=== PATIENT | female | born 1930 | race Caucasian/White ===

== ENCOUNTER 2016-08-08 13:17 | Emergency (ER) | payer OTHER ==
--- NOTE | 2016-08-08 15:12 | DIAGNOSTIC IMAGING REPORT ---
PROCEDURE: XR CHEST 1 VIEW INDICATION: DIZZY TECHNIQUE: Single view. COMPARISON: None. FINDINGS: The cardiomediastinal contour is normal. No central venous congestion. The pulmonary arteries are prominent. The lungs hyperinflated but clear without focal consolidation, pleural effusion or pneumothorax. The osseous structures are intact. IMPRESSION: 1. No acute disease. 2. Findings of mild COPD/emphysema.
--- NOTE | 2016-08-08 16:11 | ED ORDER SUMMARY ---
..... 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) (13:30 08/08/2016 Janet per protocol) (13:56 Janet) Cardiac Panel Stat (13:30 08/08/2016 NANALISEonmarlon per protocol) (Ack 13:35 Rick) (13:56 Janet) UA-Culture if indicated Urgent (13:30 08/08/2016 Janet per protocol) (Ack 13:35 Rick) (13:56 Janet) EKG - ER Stat (13:30 08/08/2016 Janet per protocol) (Ack 13:35 Rick) (14:16 Carina) Chest 1V Urgent (14:04 08/08/2016 Kendra SCHWARTZ) (Ack 14:12 Rick) (16:01 [facility]) PT with INR Urgent (14:05 08/08/2016 Kendra SCHWARTZ) (14:06 Janet) PTT Urgent (14:05 08/08/2016 Kendra SCHWARTZ) (14:06 Janet) Pulse oximeter (14:05 08/08/2016 Kendra SCHWARTZ) (14:07 Janet) Vitals - Orthostatic (14:05 08/08/2016 Kendra SCHWARTZ) (Ack 14:16 Carina) (14:25 Carina) MEDICATION ORDERS: IV FLUIDS: IV Saline Lock (13:30 08/08/2016 Janet per protocol) (13:57 Janet) IV NS : initial bolus 500 mL (1000 mL/hr), then 125 mL/hr for 4h (NOW); Urgent (15:46 08/08/2016 Kendra SCHWARTZ) (15:56 Janet) ORDER SHEET NOTES: [Electronically signed by Gill Patel (16:58 08/08/2016)] [Electronically signed by Perico Thorpe MD (08:52 08/10/2016)] [Electronically locked/signed by Gill Patel (16:58 08/08/2016)]
--- NOTE | 2016-08-08 16:11 | ED ORDER SUMMARY ---
..... 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) (13:30 08/08/2016 Janet per protocol) (13:56 Janet) Cardiac Panel Stat (13:30 08/08/2016 ANNALISEonmarlon per protocol) (Ack 13:35 Rick) (13:56 Janet) UA-Culture if indicated Urgent (13:30 08/08/2016 Janet per protocol) (Ack 13:35 Rick) (13:56 Janet) EKG - ER Stat (13:30 08/08/2016 Janet per protocol) (Ack 13:35 Rick) (14:16 Carina) Chest 1V Urgent (14:04 08/08/2016 Kendra SCHWARTZ) (Ack 14:12 Rick) (16:01 [facility]) PT with INR Urgent (14:05 08/08/2016 Kendra SCHWARTZ) (14:06 Janet) PTT Urgent (14:05 08/08/2016 Kendra SCHWARTZ) (14:06 Janet) Pulse oximeter (14:05 08/08/2016 Kendra SCHWARTZ) (14:07 Janet) Vitals - Orthostatic (14:05 08/08/2016 Kendra SCHWARTZ) (Ack 14:16 Carina) (14:25 Carina) MEDICATION ORDERS: IV FLUIDS: IV Saline Lock (13:30 08/08/2016 Janet per protocol) (13:57 Janet) IV NS : initial bolus 500 mL (1000 mL/hr), then 125 mL/hr for 4h (NOW); Urgent (15:46 08/08/2016 Kendra SCHWARTZ) (15:56 Janet) ORDER SHEET NOTES: [Electronically signed by Gill Patel (16:58 08/08/2016)] [Electronically signed by Perico Thorpe MD (08:52 08/10/2016)] [Electronically locked/signed by Gill Patel (16:58 08/08/2016)]
--- NOTE | 2016-08-08 16:11 | ED CLINICAL REPORT ---
Clinical Report - Physicians/Mid Levels [facility] [address] [place] [address] 08/08/2016 13:20 Patient: JULIO CESAR FERNANDO Time Seen: 14:02. Arrived- By private vehicle. Historian- patient. HISTORY OF PRESENT ILLNESS Chief Complaint: DIZZINESS. This started today and is now gone. It was abrupt in onset and has been intermittent and waxing/waning. Described as feeling off balance and light-headed. No nausea, vomiting, hearing loss, tinnitus or ear pain. Similar symptoms previously: Several times. Diagnosis: (UTI). REVIEW OF SYSTEMS No chills, fever, sweats, calf pain or chest pain. No cough, difficulty breathing, pedal edema, palpitations or abdominal pain. No constipation, diarrhea, nausea or vomiting. She has had incontinence of urine (chronically). All systems otherwise negative, except as recorded above. PAST HISTORY Problems: Tremor. Macular Degeneration. Medications: Premarin Oral. Allergies: Oxycodone. Sulfa Antibiotics. SOCIAL HISTORY Never smoker. Resides in an assisted living center. FAMILY HISTORY Denies family medical history. ADDITIONAL NOTES The nursing notes have been reviewed. PHYSICAL EXAM Vital Signs: 08/08/2016 13:23 BP: 175/57. HR: 80. RR: 16. O2 saturation: 96%. Temp: 97.6 F. Have been reviewed. Eyes: Pupils equal, round and reactive to light. No nystagmus. ENT: Dry mucous membranes present. Pharynx normal. Neck: Normal inspection. CVS: Normal heart rate and rhythm. Heart sounds normal. Respiratory: No respiratory distress. Breath sounds normal. Abdomen: Soft and nontender. No organomegaly. Back: Normal inspection. No CVA tenderness. Skin: Skin warm and dry. Normal skin color. Normal skin turgor. Extremities: Extremities exhibit normal ROM. No lower extremity edema. Neuro: Alert. Mood/affect normal. No cerebellar findings. No motor deficit. No sensory deficit. LABS, X-RAYS, AND EKG EKG: Normal EKG. Rate: 70. Prior EKG unavailable. The study has been independently viewed by me. Chest X-ray: (IMPRESSION: 1. No acute disease. 2. Findings of mild COPD/emphysema.). The X-rays were interpreted by the radiologist and contemporaneously by me. Laboratory Tests: UA-Culture if indicated: (SUKI: 08/08/2016 13:45) ( [facility] 08/08/2016 14:26) Final results Test Result Flag Units (Reference) URINE COLOR YELLOW URINE APPEARANCE SL CLOUDY URINE GLUCOSE NEGATIVE (NEGATIVE) URINE BILIRUBIN NEGATIVE (NEGATIVE) URINE KETONE NEGATIVE (NEGATIVE) URINE SPECIFIC GRAVITY 1.010 (1.010-1.030) URINE PH 6.5 (5.0-8.0) URINE PROTEIN NEGATIVE (NEGATIVE) URINE UROBILINOGEN 0.2 EU/dL (0.2-1.0) URINE NITRITE POSITIVE (NEGATIVE) URINE BLOOD NEGATIVE (NEGATIVE) URINE LEUK ESTERASE POSITIVE (NEGATIVE) URINE RBC 1-3 rbc/hpf (0-1) URINE WBC 15-25 wbc/hpf (0-1) URINE EPITHELIAL CELLS 5-10 EPI/hpf (0-5) URINE BACTERIA MODERATE (2+ TO 3+) (NONE SEEN) URINE COMMENT CULTURE INDICATED URINE CULTURES ARE SET-UP BASED ON THE FOLLOWING CRITERIA:POSITIVE NITRITEPOSITIVE LEUKOCYTE ESTERASEGREATER THAN 10 WHITE BLOOD CELLSMODERATE (2+) OR GREATER BACTERIA CBC w Diff: (SUKI: 08/08/2016 13:45) ( [facility] 08/08/2016 14:07) Final results Test Result Flag Units (Reference) WHITE BLOOD COUNT 6.4 K/uL (4.5-11.5) RED BLOOD COUNT 4.54 M/uL (4.00-5.20) HEMOGLOBIN 12.6 gm/dL (12.0-16.0) HEMATOCRIT 38.8 % (36.0-46.0) MEAN CELL VOLUME 85 fL (80-100) MEAN CORPUSCULAR HGB 28 pg (26-34) MEAN CORPUSCULAR HGB CONC 33 g/dL (31-37) RED CELL DISTRIBUTION WIDTH 14.9 H % (11.6-14.8) PLATELET COUNT 273 K/uL (150-400) NEUTROPHIL % 74.7 % (50-75) LYMPH % 15.0 L % (25-40) MONO % 9.6 % (3-14) EOSINOPHIL % 0.4 % (0-4) BASOPHIL % 0.3 % (0-2) PT with INR: (SUKI: 08/08/2016 13:45) ( [facility] 08/08/2016 15:03) Final results Test Result Flag Units (Reference) INR 1.2 (0.8-1.2) Low Intensity Therapy: INR 1.5-2.0 PT range 18.5-23.1Mod.Intensity Therapy: INR 2.0-3.0 PT range 23.1-31.5High Intensity Therapy: INR 2.5-3.5 PT range 27.4-35.5High Intensity Therapy 2: INR 3.0-4.0 PT range 31.5-39.3 APTT 33 SECONDS (24-34) CHEM 13 PANEL: (SUKI: 08/08/2016 13:45) ( [facility] 08/08/2016 14:59) Final results Test Result Flag Units (Reference) GLUCOSE 106 mg/dL (70-110) BUN 27 H mg/dL (7-18) CREATININE 1.0 mg/dL (0.6-1.3) Estimated GFR 56.14 mL/min Estimated GFR- >60 mL/min Note: Persistent reduction over 3 months in eGFR<60 mL/min/1.73 m2 defines CKD. Patients with eGFR values>=60 mL/min/1.73 m2 may also have CKD if evidence ofpersistent proteinuria. Additional information may be foundat www.kidney.org. SODIUM 141 mmol/L (136-145) POTASSIUM 4.2 mmol/L (3.5-5.1) CHLORIDE 106 mmol/L (98-107) CARBON DIOXIDE 23 mmol/L (21-32) CALCIUM 9.5 mg/dL (8.5-10.1) TOTAL PROTEIN 7.3 g/dL (6.4-8.2) ALBUMIN 3.6 g/dL (3.3-5.0) BILIRUBIN, TOTAL 0.3 mg/dL (0.0-1.0) ALKALINE PHOSPHATASE 93 U/L (46-116) AST (SGOT) 24 U/L (15-37) ALT (SGPT) 22 U/L (12-78) MAGNESIUM 2.1 mg/dL (1.8-2.4) CPK 109 U/L (24-260) TROPONIN I <0.05 ng/mL (0.00-1.5) TROPONIN REFERENCE RANGE:<0.1 NEGATIVE0.1-1.5 INDETERMINANT>1.5 POSITIVE . PROGRESS AND PROCEDURES Course of Care: Patient is stable. Patient/family counseled. Old medical records ordered. Old records unavailable. Disposition: Discharged. Condition: stable. CLINICAL IMPRESSION Acute dizziness. Mild volume depletion. Urinary tract infection with cystitis. INSTRUCTIONS Drink plenty of fluids. Warnings: Further evaluation is necessary. GENERAL WARNINGS: Return or contact your physician immediately if your condition worsens or changes unexpectedly, if not improving as expected, or if other problems arise. Your Current Medications: CONTINUE TAKING THE FOLLOWING MEDICATIONS: Premarin Oral. Prescription Medications: Macrobid 100 mg: Take 1 capsule orally every 12 hours for 7 days. No refills. Substitution is permissible. Follow-up: Follow up with your doctor in seven days. Call for the next available appointment. Understanding of the discharge instructions verbalized by patient and family. (Electronically signed by Perico Thorpe MD 08/10/2016 8:52)
--- NOTE | 2016-08-08 16:11 | ED CLINICAL REPORT ---
Clinical Report - Physicians/Mid Levels [facility] [address] [place] [address] 08/08/2016 13:20 Patient: JULIO CESAR FERNANDO Time Seen: 14:02. Arrived- By private vehicle. Historian- patient. HISTORY OF PRESENT ILLNESS Chief Complaint: DIZZINESS. This started today and is now gone. It was abrupt in onset and has been intermittent and waxing/waning. Described as feeling off balance and light-headed. No nausea, vomiting, hearing loss, tinnitus or ear pain. Similar symptoms previously: Several times. Diagnosis: (UTI). REVIEW OF SYSTEMS No chills, fever, sweats, calf pain or chest pain. No cough, difficulty breathing, pedal edema, palpitations or abdominal pain. No constipation, diarrhea, nausea or vomiting. She has had incontinence of urine (chronically). All systems otherwise negative, except as recorded above. PAST HISTORY Problems: Tremor. Macular Degeneration. Medications: Premarin Oral. Allergies: Oxycodone. Sulfa Antibiotics. SOCIAL HISTORY Never smoker. Resides in an assisted living center. FAMILY HISTORY Denies family medical history. ADDITIONAL NOTES The nursing notes have been reviewed. PHYSICAL EXAM Vital Signs: 08/08/2016 13:23 BP: 175/57. HR: 80. RR: 16. O2 saturation: 96%. Temp: 97.6 F. Have been reviewed. Eyes: Pupils equal, round and reactive to light. No nystagmus. ENT: Dry mucous membranes present. Pharynx normal. Neck: Normal inspection. CVS: Normal heart rate and rhythm. Heart sounds normal. Respiratory: No respiratory distress. Breath sounds normal. Abdomen: Soft and nontender. No organomegaly. Back: Normal inspection. No CVA tenderness. Skin: Skin warm and dry. Normal skin color. Normal skin turgor. Extremities: Extremities exhibit normal ROM. No lower extremity edema. Neuro: Alert. Mood/affect normal. No cerebellar findings. No motor deficit. No sensory deficit. LABS, X-RAYS, AND EKG EKG: Normal EKG. Rate: 70. Prior EKG unavailable. The study has been independently viewed by me. Chest X-ray: (IMPRESSION: 1. No acute disease. 2. Findings of mild COPD/emphysema.). The X-rays were interpreted by the radiologist and contemporaneously by me. Laboratory Tests: UA-Culture if indicated: (SUKI: 08/08/2016 13:45) ( [facility] 08/08/2016 14:26) Final results Test Result Flag Units (Reference) URINE COLOR YELLOW URINE APPEARANCE SL CLOUDY URINE GLUCOSE NEGATIVE (NEGATIVE) URINE BILIRUBIN NEGATIVE (NEGATIVE) URINE KETONE NEGATIVE (NEGATIVE) URINE SPECIFIC GRAVITY 1.010 (1.010-1.030) URINE PH 6.5 (5.0-8.0) URINE PROTEIN NEGATIVE (NEGATIVE) URINE UROBILINOGEN 0.2 EU/dL (0.2-1.0) URINE NITRITE POSITIVE (NEGATIVE) URINE BLOOD NEGATIVE (NEGATIVE) URINE LEUK ESTERASE POSITIVE (NEGATIVE) URINE RBC 1-3 rbc/hpf (0-1) URINE WBC 15-25 wbc/hpf (0-1) URINE EPITHELIAL CELLS 5-10 EPI/hpf (0-5) URINE BACTERIA MODERATE (2+ TO 3+) (NONE SEEN) URINE COMMENT CULTURE INDICATED URINE CULTURES ARE SET-UP BASED ON THE FOLLOWING CRITERIA:POSITIVE NITRITEPOSITIVE LEUKOCYTE ESTERASEGREATER THAN 10 WHITE BLOOD CELLSMODERATE (2+) OR GREATER BACTERIA CBC w Diff: (SUKI: 08/08/2016 13:45) ( [facility] 14:07) Final results Test Result Flag Units (Reference) WHITE BLOOD COUNT 6.4 K/uL (4.5-11.5) RED BLOOD COUNT 4.54 M/uL (4.00-5.20) HEMOGLOBIN 12.6 gm/dL (12.0-16.0) HEMATOCRIT 38.8 % (36.0-46.0) MEAN CELL VOLUME 85 fL (80-100) MEAN CORPUSCULAR HGB 28 pg (26-34) MEAN CORPUSCULAR HGB CONC 33 g/dL (31-37) RED CELL DISTRIBUTION WIDTH 14.9 H % (11.6-14.8) PLATELET COUNT 273 K/uL (150-400) NEUTROPHIL % 74.7 % (50-75) LYMPH % 15.0 L % (25-40) MONO % 9.6 % (3-14) EOSINOPHIL % 0.4 % (0-4) BASOPHIL % 0.3 % (0-2) PT with INR: (SUKI: 08/08/2016 13:45) ( [facility] 08/08/2016 15:03) Final results Test Result Flag Units (Reference) INR 1.2 (0.8-1.2) Low Intensity Therapy: INR 1.5-2.0 PT range 18.5-23.1Mod.Intensity Therapy: INR 2.0-3.0 PT range 23.1-31.5High Intensity Therapy: INR 2.5-3.5 PT range 27.4-35.5High Intensity Therapy 2: INR 3.0-4.0 PT range 31.5-39.3 APTT 33 SECONDS (24-34) CHEM 13 PANEL: (SUKI: 08/08/2016 13:45) ( [facility] 14:59) Final results Test Result Flag Units (Reference) GLUCOSE 106 mg/dL (70-110) BUN 27 H mg/dL (7-18) CREATININE 1.0 mg/dL (0.6-1.3) Estimated GFR 56.14 mL/min Estimated GFR- >60 mL/min Note: Persistent reduction over 3 months in eGFR<60 mL/min/1.73 m2 defines CKD. Patients with eGFR values>=60 mL/min/1.73 m2 may also have CKD if evidence ofpersistent proteinuria. Additional information may be foundat www.kidney.org. SODIUM 141 mmol/L (136-145) POTASSIUM 4.2 mmol/L (3.5-5.1) CHLORIDE 106 mmol/L (98-107) CARBON DIOXIDE 23 mmol/L (21-32) CALCIUM 9.5 mg/dL (8.5-10.1) TOTAL PROTEIN 7.3 g/dL (6.4-8.2) ALBUMIN 3.6 g/dL (3.3-5.0) BILIRUBIN, TOTAL 0.3 mg/dL (0.0-1.0) ALKALINE PHOSPHATASE 93 U/L (46-116) AST (SGOT) 24 U/L (15-37) ALT (SGPT) 22 U/L (12-78) MAGNESIUM 2.1 mg/dL (1.8-2.4) CPK 109 U/L (24-260) TROPONIN I <0.05 ng/mL (0.00-1.5) TROPONIN REFERENCE RANGE:<0.1 NEGATIVE0.1-1.5 INDETERMINANT>1.5 POSITIVE . PROGRESS AND PROCEDURES Course of Care: Patient is stable. Patient/family counseled. Old medical records ordered. Old records unavailable. Disposition: Discharged. Condition: stable. CLINICAL IMPRESSION Acute dizziness. Mild volume depletion. Urinary tract infection with cystitis. INSTRUCTIONS Drink plenty of fluids. Warnings: Further evaluation is necessary. GENERAL WARNINGS: Return or contact your physician immediately if your condition worsens or changes unexpectedly, if not improving as expected, or if other problems arise. Your Current Medications: CONTINUE TAKING THE FOLLOWING MEDICATIONS: Premarin Oral. Prescription Medications: Macrobid 100 mg: Take 1 capsule orally every 12 hours for 7 days. No refills. Substitution is permissible. Follow-up: Follow up with your doctor in seven days. Call for the next available appointment. Understanding of the discharge instructions verbalized by patient and family. (Electronically signed by Perico Thorpe MD 08/10/2016 8:52)
--- NOTE | 2016-08-08 16:11 | ED NURSING NOTES ---
Clinical Report - Nurses [facility] [address] [place] [address] 08/08/2016 13:20 Patient: JULIO CESAR FERNANDO TRIAGE Triage time 0115. Acuity: LEVEL 3. Chief Complaint: DIZZINESS and LIGHT HEADED. Alert. No acute distress. --13:28 Gill Patel 13:23 08/08/16. BP: 175/57. HR: 80. RR: 16. O2 saturation: 96%. Temp: 97.6 F. Pain level now 0/10. --13:28 Gill Patel. Weight: 71.6 kg. Height/Length: 70 inches. BMI: 22.6. --13:23 Gill Patel. Medications Premarin Oral. --13:24 Gill Patel. Allergies Sulfa Antibiotics. --13:24 Gill Patel Oxycodone. --13:25 Gill Patel. History Arrived by EMS. Historian: EMS and patient. This started just prior to arrival. Started while participating in light activity. Symptoms still present. ( Pt got up to walk downstairs and felt light headed and dizzy, facily called EMS). ( Pt denies any sxs other than dizzy/lightheaded). SOCIAL HX: Never smoker. --13:28 Gill Patel. PROBLEMS: Tremor. Macular Degeneration. --13:25 Gill Patel. Interventions To treatment room. --13:28 Gill Patel. PHYSICAL ASSESSMENT To room via stretcher. Patient gowned. GENERAL / NEURO / PSYCH: Oriented X 4. Appears in no acute distress. Alert. Speech within normal limits. HEENT: No facial asymmetry noted. Pupils equal, round and reactive to light. RESPIRATORY: Breath sounds within normal limits. Respirations not labored. CVS: Normal sinus rhythm noted. Capillary refill less than 2 seconds. GI / : Abdomen soft and nontender. SKIN: Skin is warm and dry. --13:28 Gill Patel. NURSING PROGRESS NOTES Reassurance given. Call light placed in reach. Side rails up x 2. Bed placed in lowest position. Brakes of bed on. Patient ready for evaluation- chart flagged. --13:28 Gill Patel 13:57 08/08/2016 Site #1 started via IV in the right forearm with an 22g angiocath, with aseptic technique and good blood return; one attempt. Blood drawn: rainbow set. Labeled in the presence of the patient and sent to the lab. Saline lock flushed with 10 mL saline. --13:57 Gill Patel EKG time: (13:43). EKG was performed by a tech and shown to the ED physician. --14:13 Sheila Gerber 14:16 08/08/16. BP: 150/64 (regular adult cuff) taken on the left arm, via an automated monitor, while lying. HR: 72 (regular). --14:18 Sheila Gerber 14:18 08/08/16. BP: 159/58 (regular adult cuff) taken on the left arm, via an automated monitor, while sitting. HR: 78 (regular). --14:20 Sheila Gerber 14:22 08/08/16. BP: 172/77 (regular adult cuff) taken on the left arm, via an automated monitor, while standing. HR: 107. Additional comments: Patient reports to be "not to steady" while standing and continues to report "it's an awful feeling". --14:24 Sheila Gerber 15:15 08/08/16. BP: 164/65. HR: 76. RR: 18. O2 saturation: 97%. --15:16 Gill Patel Overall patient status is the same- she states feels the same. Patient and family informed about reason for wait and about plan of care. Patient waiting for evaluation. --15:16 Gill Patel 15:56 08/08/2016 Started bag #1 500 mL IV Fluids IV NS (Saline); bolus of 500 mL over 1 hour(s) via site #1 --15:56 Gill Patel. DISPOSITION / DISCHARGE 16:56 08/08/2016 IV Fluids IV NS Discontinued: bag #1 STOPPED upon discharge. Total amount infused: 500 mL. --16:56 Gill Patel 16:57 08/08/2016 Site #1 removed upon discharge. Catheter intact. Pressure dressing applied. --16:57 Gill Patel Condition at departure: improved and stable. No learning barriers present. Discharge instructions provided and reviewed with the patient and family. Reviewed medication(s). Patient and family verbalized understanding. Written instructions provided in Grenadian. The patient was discharged by the physician. She was discharged home and accompanied by family. She left the Emergency Department ambulatory and via private vehicle. Family member driving. --16:57 Gill Patel 16:56 08/08/16. BP: 172/67. HR: 80. RR: 18. O2 saturation: 97%. --16:57 Gill Patel Departure time: 1655. --16:58 Gill Patel. Locked/Released at 08/08/2016 16:58 by Gill Patel,
--- NOTE | 2016-08-10 08:52 | ED MAR SUMMARY ---
..... Medication Administration Record [facility] [address] [place] [address] Patient: JULIO CESAR FERNANDO Visit ID: [id number] 85y, F Weight: 71.6 kg Height/Length: 70 in BMI: 22.6 ALLERGIES: Oxycodone, Sulfa Antibiotics Start 15:56 08/08/2016 Gill Patel,, Stop 16:56 08/08/2016 Gill Patel, Medication Administered: IV NS (SALINE), Dose: IV Fluids, Bolus: 500 mL over 1 hour(s), Dispensed: 500 mL bag, Site: #1 right forearm. Medication Ordered: IV NS : initial bolus 500 mL (1000 mL/hr), then 125 mL/hr for 4h (NOW); Urgent.
--- NOTE | 2016-08-10 08:52 | ED MED RECONCILIATION SUMMARY ---
Patient: JULIO CESAR FERNANDO Medication Reconciliation Report [facility] VisitID: [id number] [address] [place] [address] 85y, F Registration Date/Time: 08/08/2016 Weight: 71.6 kg Height/Length: 70 in. BMI: 22.6 ALLERGIES: Oxycodone, Sulfa Antibiotics The patient's Home Medications are listed below: CONTINUE TAKING THE FOLLOWING MEDICATIONS: Premarin Oral The source(s) of the original Home Medication information: Not obtained. The following Medications were given to the patient in the Emergency Department: IV NS IV Fluids bolus 500 mL over 1 hour(s), administered: 08/08/2016 3:56:00 PM The following Medications were prescribed to the patient: Macrobid 100 mg: Take 1 capsule orally every 12 hours for 7 days. No refills. Substitution is permissible. -- Perico Thorpe MD
--- NOTE | 2016-08-10 08:52 | ED MED RECONCILIATION SUMMARY ---
Patient: JULIO CESAR FERNANDO Medication Reconciliation Report [facility] VisitID: [id number] [address] [place] [address] 85y, F Registration Date/Time: 08/08/2016 Weight: 71.6 kg Height/Length: 70 in. BMI: 22.6 ALLERGIES: Oxycodone, Sulfa Antibiotics The patient's Home Medications are listed below: CONTINUE TAKING THE FOLLOWING MEDICATIONS: Premarin Oral The source(s) of the original Home Medication information: Not obtained. The following Medications were given to the patient in the Emergency Department: IV NS IV Fluids bolus 500 mL over 1 hour(s), administered: 08/08/2016 3:56:00 PM The following Medications were prescribed to the patient: Macrobid 100 mg: Take 1 capsule orally every 12 hours for 7 days. No refills. Substitution is permissible. -- Perico Thorpe MD
--- NOTE | 2016-08-10 08:52 | ED DISCHARGE INSTRUCTIONS ---
Patient: JULIO CESAR FERNANDO General Instructions [facility] VisitID: [id number] [address] [place] [address] 85y, F Registration Date/Time: 08/08/2016 Acute dizziness. Mild volume depletion. Urinary tract infection with cystitis. INSTRUCTIONS Drink plenty of fluids. Warnings: Further evaluation is necessary. GENERAL WARNINGS: Return or contact your physician immediately if your condition worsens or changes unexpectedly, if not improving as expected, or if other problems arise. Your Current Medications: CONTINUE TAKING THE FOLLOWING MEDICATIONS: Premarin Oral. Prescription Medications: Macrobid 100 mg: Take 1 capsule orally every 12 hours for 7 days. No refills. Substitution is permissible. Follow-up: Follow up with your doctor in seven days. Call for the next available appointment. Understanding of the discharge instructions verbalized by patient and family. ADDITIONAL INFORMATION Dehydration (Adult) Dehydration occurs when your body loses too much fluid. This may be the result of vomiting a lot or from diarrhea,sweating a lot, or a high fever. It may also happen if you dont drink enough fluid when youre sick. Misuse of diuretics (water pills) can also be a cause. Symptoms include thirst and feeling dizzy, weak, fatigued, or very drowsy. The diet described below is usually enough to treat most cases. Sometimes you may needmedicine. Home Care Follow these guidelines for home care: Drink at least 12 8-ounce glasses of fluid every day to overcome the dehydration. Fluid may include water; orange juice; lemonade; apple, grape, and cranberry juice; clear fruit drinks; electrolyte replacement and sports drinks; and teas and coffee without caffeine. If you have been diagnosed with a kidney disease, ask your doctor how much and what types of fluids you should drink to prevent dehydration. If you have kidney disease, drinking too much fluid can cause it build up in the your body and be dangerous to your health. If you have fever, muscle aching, or headache from a viral syndrome, you may useacetaminophen or ibuprofen, unless another medicine was prescribed for this.If you have chronic liver or kidney disease or ever had a stomach ulcer or GI bleeding, talk with your doctor before using these medicines. Don't take aspirin if you are younger than 18 and are ill with a fever.Aspirin raises the chance forsevere liver injury. Follow-up care Follow up with your health care provider if you don't get better in the next 24 to 48 hours. When to seek medical care Get prompt medical attention if any of theseoccur: Continued vomiting (cant keep liquids down) Frequent diarrhea (more than 5 times a day); blood (red or black color) or mucus in diarrhea Blood in vomit or stool Swollen abdomen or increasing abdominal pain Weakness, dizziness, or fainting Unusually drowsy or confused Reduced urine output or extreme thirst Fever of 100.4 F (38 C) oral or higher that does not get better with fever medication Bladder Infection,Female (Adult) A bladder infection ("cystitis" or "UTI") usually causes a constant urge to urinate and a burning when passing urine. Urine may be cloudy, smelly or dark. There may be pain in the lower abdomen. A bladder infection occurs when bacteria from the vaginal area enter the bladder opening (urethra). This can occur from sexual intercourse, wearing tight clothing, dehydration and other factors. Home Care: Drink lots of fluids (at least 6-8 glasses a day, unless you must restrict fluids for other medical reasons). This will force the medicine into your urinary system and flush the bacteria out of your body. Avoid sexual intercourse until your symptoms are gone. Avoid caffeine, alcohol and spicy foods. These can irritate the bladder. A bladder infection is treated with antibiotics. You may also be given Pyridium (generic = phenazopyridine) to reduce the burning sensation. This medicine will cause your urine to become a bright orange color. The orange urine may stain clothing. You may wear a pad or panty-liner to protect clothing. Preventing Future Infections: Always wipe from front to back after a bowel movement. Keep the genital area clean and dry. Drink plenty of fluids each day to avoid dehydration. Both sexual partners should wash before intercourse. Urinate right after intercourse to flush out the bladder. Wear cotton underwear and cotton-lined panty hose; avoid tight-fitting pants. If you are on control pills and are having frequent bladder infections, discuss with your doctor. Follow Up: Return to this facility or see your doctor if ALL symptoms are not gone after three days of treatment. Get Prompt Medical Attention if any of the following occur: Fever of 100.4F (38C) or higher, or as directed by your healthcare provider No improvement by the third day of treatment Increasing back or abdominal pain Repeated vomiting; unable to keep medicine down Weakness, dizziness or fainting Vaginal discharge Pain, redness or swelling in the labia (outer vaginal area) Nitrofurantoin, Nitrofurantoin, Macrocrystalline Oral capsule What is this medicine? NITROFURANTOIN (silviamichelle PHAM toyn) is an antibiotic. It is used to treat urinary tract infections. How should I use this medicine? Take this medicine by mouth with a glass of water. Follow the directions on the prescription label. Take this medicine with food or milk. Take your doses at regular intervals. Do not take your medicine more often than directed. Do not stop taking except on your doctor's advice. Talk to your flow floor attendant regarding the use of this medicine in children. While this drug may be prescribed for selected conditions, precautions do apply. What side effects may I notice from receiving this medicine? Side effects that you should report to your doctor or health companion caregiver as soon as possible: allergic reactions like skin rash or hives, swelling of the face, lips, or tongue chest pain cough difficulty breathing dizziness, drowsiness fever or infection joint aches or pains pale or blue-tinted skin redness, blistering, peeling or loosening of the skin, including inside the mouth tingling, burning, pain, or numbness in hands or feet unusual bleeding or bruising unusually weak or tired yellowing of eyes or skin Side effects that usually do not require medical attention (report to your doctor or health companion caregiver if they continue or are bothersome): dark urine diarrhea headache loss of appetite nausea or vomiting temporary hair loss What may interact with this medicine? antacids containing magnesium trisilicate probenecid quinolone antibiotics like ciprofloxacin, lomefloxacin, norfloxacin and ofloxacin sulfinpyrazone What if I miss a dose? If you miss a dose, take it as soon as you can. If it is almost time for your next dose, take only that dose. Do not take double or extra doses. Where should I keep my medicine? Keep out of the reach of children. Store at room temperature between 15 and 30 degrees C (59 and 86 degrees F). Protect from light. Throw away any unused medicine after the expiration date. What should I tell my health care provider before I take this medicine? They need to know if you have any of these conditions: anemia diabetes [id number] dehydrogenase deficiency kidney disease liver disease lung disease other chronic illness an unusual or allergic reaction to nitrofurantoin, other antibiotics, other medicines, foods, dyes or preservatives or trying to get breast-feeding What should I watch for while using this medicine? Tell your doctor or health companion caregiver if your symptoms do not improve or if you get new symptoms. Drink several glasses of water a day. If you are taking this medicine for a long time, visit your doctor for regular checks on your progress. If you are diabetic, you may get a false positive result for sugar in your urine with certain brands of urine tests. Check with your doctor. You have been given the following additional information: Dehydration (Adult) Bladder Infection, Female (Adult) Nitrofurantoin, Nitrofurantoin, Macrocrystalline Oral capsule (Electronically signed by Perico Thorpe MD 08/10/2016 8:52)
--- NOTE | 2016-08-10 08:52 | ED MAR SUMMARY ---
..... Medication Administration Record [facility] [address] [place] [address] Patient: JULIO CESAR FERNANDO Visit ID: [id number] 85y, F Weight: 71.6 kg Height/Length: 70 in BMI: 22.6 ALLERGIES: Oxycodone, Sulfa Antibiotics Start 15:56 08/08/2016 Gill Patel,, Stop 16:56 08/08/2016 Gill Patel, Medication Administered: IV NS (SALINE), Dose: IV Fluids, Bolus: 500 mL over 1 hour(s), Dispensed: 500 mL bag, Site: #1 right forearm. Medication Ordered: IV NS : initial bolus 500 mL (1000 mL/hr), then 125 mL/hr for 4h (NOW); Urgent.
== END 2016-08-08 16:53 | disposition home or self-care (01) ==
LOC: ED SRH 13:17
DX: N30.90 Cystitis, unspecified without hematuria (principal); E86.9 Volume depletion, unspecified; R42 Dizziness and giddiness; Z88.2 Allergy status to sulfonamides; Z88.5 Allergy status to narcotic agent
CPT/HCPCS: 90004; 90100; 90148; 90469; 90616; 92610; 92720; 94001; 94060; 95059

== ENCOUNTER 2016-10-07 12:29 | Emergency (ER) | payer OTHER ==
--- NOTE | 2016-10-07 13:07 | DIAGNOSTIC IMAGING REPORT ---
PROCEDURE: XR CHEST 1 VIEW INDICATION: LIGHT HEADED TECHNIQUE: Portable AP view 12:58 p.m. COMPARISON: Chest x-ray 08/08/2016 FINDINGS: Lungs are clear. Heart and mediastinum are normal. Right glenohumeral joint degenerative changes. No significant interval change. IMPRESSION: 1. Negative chest.
--- NOTE | 2016-10-07 16:32 | ED CLINICAL REPORT ---
Clinical Report - Physicians/Mid Levels [facility] [address] [place] [address] 10/07/2016 12:29 Patient: JULIO CESAR FERNANDO Time Seen: 1248. Arrived- By private vehicle. Historian- patient. HISTORY OF PRESENT ILLNESS Chief Complaint: VERTIGO. Severity described as moderate at its maximum. When seen in the E.D., severity described as moderate. Modifying factors- worsened by standing up. Relieved by nothing. Described as a sense of rotation and feeling off balance. This started today and is still present. It was abrupt in onset and has been constant but is not gone now. The patient has had nausea. No vomiting, hearing loss, tinnitus or ear pain. Similar symptoms previously: None. Recent medical care: Not recently seen/assessed. REVIEW OF SYSTEMS No headache, double vision, head injury, chest pain or fever. No skin rash. All systems otherwise negative, except as recorded above. PAST HISTORY See nurses notes. Medications: Premarin Vaginal. Call kari in [place] for doseages. Alendronate Sodium Oral. Donepezil HCl Oral (Tablet 10 mg) 1 tablet, daily. Propranolol HCl Oral (Tablet 10 mg) 1 tablet, 2x a day. Venlafaxine HCl ER Oral 37.5 mg, daily. Allergies: Oxycodone. Sulfa Antibiotics. SOCIAL HISTORY Never smoker. No alcohol use or drug use. No recent travel. Is a local resident. ADDITIONAL NOTES The nursing notes have been reviewed. PHYSICAL EXAM Vital Signs: 10/07/2016 12:40 BP: 191/77. HR: 60. RR: 20. O2 saturation: 91%. Temp: 97.8 F. Pain level now: 0/10. Hypertensive. Oxygen saturation normal. Appearance: Alert. No acute distress. Eyes: Pupils equal, round and reactive to light. No nystagmus. Extraocular movements normal. ENT: Normal ENT inspection. TM's normal. Moist mucous membranes. Pharynx normal. Neck: Normal inspection. Neck supple. No meningeal signs. CVS: Normal heart rate and rhythm. Heart sounds normal. Pulses normal. Respiratory: No respiratory distress. Breath sounds normal. Abdomen: Soft and nontender. No organomegaly. Back: Normal inspection. Skin: Skin warm and dry. Normal skin color. No rash. Normal skin turgor. Extremities: Extremities exhibit normal ROM. No lower extremity edema. Neuro: Alert. Oriented X 3. Mood/affect normal. Speech normal. Cranial nerves normal (as tested). No cerebellar findings. No motor deficit. No sensory deficit. Reflexes normal. (negative HINTS examination.). LABS, X-RAYS, AND EKG EKG: No acute process. No acute ischemia. Normal EKG. Normal sinus rhythm. Rate: 65. Normal P waves. Normal TATE. Normal QRS complex. Normal axis. Normal ST and T waves, QT and QTc. The study has been interpreted contemporaneously. The study has been independently viewed by me. The EKG appears to be a good tracing. Chest X-ray: (PROCEDURE: XR CHEST 1 VIEW INDICATION: LIGHT HEADED TECHNIQUE: Portable AP view 12:58 p.m. COMPARISON: Chest x-ray 08/08/2016 FINDINGS: Lungs are clear. Heart and mediastinum are normal. Right glenohumeral joint degenerative changes. No significant interval change. IMPRESSION: 1. Negative chest.). Laboratory Tests: UA-Culture if indicated: (SUKI: 10/07/2016 13:27) ( MsgRcvd 10/07/2016 14:39) Final results Test Result Flag Units (Reference) URINE COLOR YELLOW URINE APPEARANCE SL CLOUDY URINE GLUCOSE NEGATIVE (NEGATIVE) URINE BILIRUBIN NEGATIVE (NEGATIVE) URINE KETONE NEGATIVE (NEGATIVE) URINE SPECIFIC GRAVITY 1.010 (1.010-1.030) URINE PH 7.0 (5.0-8.0) URINE PROTEIN NEGATIVE (NEGATIVE) URINE UROBILINOGEN 0.2 EU/dL (0.2-1.0) URINE NITRITE NEGATIVE (NEGATIVE) URINE BLOOD NEGATIVE (NEGATIVE) URINE LEUK ESTERASE NEGATIVE (NEGATIVE) URINE RBC NONE SEEN rbc/hpf (0-1) URINE WBC NONE SEEN wbc/hpf (0-1) URINE EPITHELIAL CELLS >15 EPI/hpf (0-5) URINE BACTERIA FEW (1+) (NONE SEEN) URINE COMMENT CULT NOT INDICATED URINE CULTURES ARE SET-UP BASED ON THE FOLLOWING CRITERIA:POSITIVE NITRITEPOSITIVE LEUKOCYTE ESTERASEGREATER THAN 10 WHITE BLOOD CELLSMODERATE (2+) OR GREATER BACTERIA CBC w Diff: (SUKI: 10/07/2016 12:50) ( [facility] 10/07/2016 13:23) Final results Test Result Flag Units (Reference) WHITE BLOOD COUNT 8.6 K/uL (4.5-11.5) RED BLOOD COUNT 4.41 M/uL (4.00-5.20) HEMOGLOBIN 12.5 gm/dL (12.0-16.0) HEMATOCRIT 38.2 % (36.0-46.0) MEAN CELL VOLUME 87 fL (80-100) MEAN CORPUSCULAR HGB 28 pg (26-34) MEAN CORPUSCULAR HGB CONC 33 g/dL (31-37) RED CELL DISTRIBUTION WIDTH 15.0 H % (11.6-14.8) PLATELET COUNT 275 K/uL (150-400) NEUTROPHIL % 75.3 H % (50-75) LYMPH % 14.0 L % (25-40) MONO % 9.6 % (3-14) EOSINOPHIL % 0.9 % (0-4) BASOPHIL % 0.2 % (0-2) PT with INR: (SUKI: 10/07/2016 12:50) ( [facility] 10/07/2016 13:37) Final results Test Result Flag Units (Reference) INR 1.1 (0.8-1.2) Low Intensity Therapy: INR 1.5-2.0 PT range 18.5-23.1Mod.Intensity Therapy: INR 2.0-3.0 PT range 23.1-31.5High Intensity Therapy: INR 2.5-3.5 PT range 27.4-35.5High Intensity Therapy 2: INR 3.0-4.0 PT range 31.5-39.3 Troponin-I: (SUKI: 10/07/2016 14:49) ( [facility] 10/07/2016 15:26) Final results Test Result Flag Units (Reference) TROPONIN I <0.05 L ng/mL (0.00-1.5) TROPONIN REFERENCE RANGE:<0.1 NEGATIVE0.1-1.5 INDETERMINANT>1.5 POSITIVE CMP: (SUKI: 10/07/2016 12:50) ( MsgRcvd 10/07/2016 13:47) Final results Test Result Flag Units (Reference) GLUCOSE 109 mg/dL (70-110) BUN 21 H mg/dL (7-18) CREATININE 0.8 mg/dL (0.6-1.3) Estimated GFR >60 mL/min Estimated GFR- >60 mL/min Note: Persistent reduction over 3 months in eGFR<60 mL/min/1.73 m2 defines CKD. Patients with eGFR values>=60 mL/min/1.73 m2 may also have CKD if evidence ofpersistent proteinuria. Additional information may be foundat www.kidney.org. SODIUM 140 mmol/L (136-145) POTASSIUM 4.4 mmol/L (3.5-5.1) CHLORIDE 104 mmol/L (98-107) CARBON DIOXIDE 28 mmol/L (21-32) CALCIUM 9.3 mg/dL (8.5-10.1) TOTAL PROTEIN 7.1 g/dL (6.4-8.2) ALBUMIN 3.6 g/dL (3.3-5.0) BILIRUBIN, TOTAL 0.4 mg/dL (0.0-1.0) ALKALINE PHOSPHATASE 97 U/L (46-116) AST (SGOT) 24 U/L (15-37) ALT (SGPT) 21 U/L (12-78) TROPONIN I <0.05 L ng/mL (0.00-1.5) TROPONIN REFERENCE RANGE:<0.1 NEGATIVE0.1-1.5 INDETERMINANT>1.5 POSITIVE . PROGRESS AND PROCEDURES Course of Care: the patient is a 86 yo female with symptoms of vertigo and light headed symptoms. appears to be primarily vertigo however will also evaluate for possible near syncope. work up includes cardiac vs metabolic abnormality. work up negative. 2nd trop ordered for possible delay in marker detection in the blood. patient continues to be doing well. no other symptoms. states she still feels dizzy. second trop negative. do not feel this is cardiac. patient with no other findings. meclizine given. symptoms significantly improved. patient and daughter agreeable to follow up and home managment. do not feel this is due to AMI. PE considered but not likely and do not feel further work up for this is needed based on symptoms and evaluation. patient low risk for cardiac etiology and appears to be vertiginous. Disposition: Discharged. Condition: good. CLINICAL IMPRESSION Acute dizziness Near syncope .12 lead EKG performed. (acute). 10/07/2016 15:40 BP: 180/74. HR: 73. RR: 16. O2 saturation: 95%. Pain level now: 0/10. Hypertensive. Oxygen saturation normal. INSTRUCTIONS Warnings: GENERAL WARNINGS: Return or contact your physician immediately if your condition worsens or changes unexpectedly, if not improving as expected, or if other problems arise. SPECIFICALLY, return if you develop chest pain, fluttering sensation in your chest, lightheadedness, fainting, numbness, weakness or extreme fatigue. difficulty breathing. Your Current Medications: CONTINUE TAKING THE FOLLOWING MEDICATIONS: Alendronate Sodium Oral. Call [facility] in [place] for doseages*. Donepezil HCl Oral : Tablet 10 mg, 1 tablet daily. Premarin Vaginal. Propranolol HCl Oral : Tablet 10 mg, 1 tablet 2x a day. Venlafaxine HCl ER Oral : 37.5 mg daily. Prescription Medications: Meclizine 25 mg: take 1 tablet orally every 8 hours as needed for dizziness or nausea. Dispense thirty (30). No refill. Follow-up: Return to the emergency department as needed. Follow up with your doctor in three days. Reason for referral: recheck today's concerns. Summary of care provided to patient via paper. Screening today revealed the patient's blood pressure to be in the hypertensive range. The patient should follow up with a primary care provider for blood pressure management. Understanding of the discharge instructions verbalized by patient. (Electronically signed by Rodrigue Reyes Dr. 10/11/2016 1:14)
--- NOTE | 2016-10-07 16:33 | ED NURSING NOTES ---
Clinical Report - Nurses [facility] [address] [place] [address] 10/07/2016 12:29 Patient: JULIO CESAR FERNANDO TRIAGE Triage time 1235. Acuity: LEVEL 3. Chief Complaint: DIZZINESS, LIGHT HEADED and VERTIGO. 12:25. TC COMA SCORE: [place] Coma Scale: 15- eyes open spontaneously (4); best verbal response- oriented x 4 (5); best motor response- obeys commands (6). --12:51 Lauren Salazar R.N. 12:40 10/07/16. BP: 191/77. HR: 60. RR: 20. O2 saturation: 91% on room air. Temp: 97.8 F (tympanic). Pain level now: 0/10. Additional comments: 94 2 L . --12:51 Lauren Salazar R.N. Weight: 72.5 kg stated. Height/Length: 70 inches Per Patient. BMI: 22.9. --12:47 Lauren Salazar R.N. Medications Alendronate Sodium Oral. --12:43 Lauren Salazar R.N. Donepezil HCl Oral (Tablet 10 mg) 1 tablet, daily. Propranolol HCl Oral (Tablet 10 mg) 1 tablet, 2x a day. Venlafaxine HCl ER Oral 37.5 mg, daily. --12:43 Steve Eden R.N. Call [facility] in [place] for doseages. --12:45 Lauren Salazar R.N. Premarin Vaginal. --14:19 Steve Eden R.N. The following entry was struck by Steve Eden R.N., 14:19 (10/07/16) Reason - other(per pharmacy uses vaginal ). <<STRICKEN ENTRY-- Premarin Oral. --12:41 Lauren Salazar R.N. --END STRIKE>> The following entry was struck and corrected by Steve Eden R.N., 14:18 (10/07/16) Reason for correction - other(correction). [facility] Pro[facility] Oral. --12:43 Lauren Salazar R.N. --END STRIKE>> The following entry was struck and corrected by Steve Eden R.N., 14:18 (10/07/16) Reason for correction - other(correction). <<[facility]-- Donepezil HCl Oral. --12:43 Lauren Salazar R.N. --END STRIKE>> The following entry was struck and corrected by Steve Eden R.N., 14:17 (10/07/16) Reason for correction - other(correction). <<[facility]-- Venlafaxine HCl ER Oral. --12:43 Lauren Salazar R.N. --END STRIKE>>. Allergies Oxycodone. Sulfa Antibiotics. --12:41 Lauren Salazar R.N. History Arrived by EMS. Historian: patient. Unaccompanied. Primary physician ([facility]). The patient has had nausea. No headache. SOCIAL HX: Former smoker (quit 50 years ago, smoked 1ppd for 6 years). No alcohol use or drug use. --12:51 Lauren Salazar R.N. PROBLEMS: UTI - Urinary Tract Infection. Hypovolemia. Dizziness. Tremor. Macular Degeneration. --12:50 Lauren Salazar R.N. Interventions ID band on patient. To treatment room. --12:51 Lauren Salazar R.N. PHYSICAL ASSESSMENT 12:25. Ambulatory to room. Patient gowned. GENERAL / NEURO / PSYCH: Oriented X 4. Appears in no acute distress. Alert. Speech within normal limits. ( c/o dizziness). HEENT: No facial asymmetry noted. RESPIRATORY: Respirations not labored. CVS: Capillary refill less than 2 seconds. GI / : Abdomen soft. SKIN: Skin is warm and dry. --12:53 Lauren Salazar R.N. NURSING PROGRESS NOTES 12:25. Oxygen administered. business continuity strategy director placed on patient. Patient gowned. Head of bed elevated. Reassurance given. Patient identifiers checked. Call light placed in reach. Side rails up. Bed placed in lowest position. Patient ready for evaluation- chart flagged. --12:51 Lauren Salazar R.N. 12:47 10/07/2016 Site #1 started via IV in the left antecubital space with an 20g angiocath; one attempt. Blood drawn: rainbow set. Labeled in the presence of the patient and sent to the lab. Saline lock flushed with 10 mL saline (by PANKAJ Hernandez). --12:52 Lauren Salazar R.N. 12:47 IV started, bloods to lab. --12:53 Lauren Salazar R.N. 12:55. EKG time: (1255). EKG was ordered, performed by a tech and shown to the ED physician. Mal Roger, triage technician. --12:56 Lauren Salazar R.N. 12:56 10/07/16. BP: 184/74. HR: 64. RR: 18. O2 saturation: 95% on nasal cannula at 2 liters/minute. Temp: deferred. Pain level now: 0/10. --12:57 Lauren Salazar R.N. 13:01 10/07/16. Portable chest x-ray ordered, performed and shown to the ED physician. --13:02 Lauren Salazar R.N. 13:10 10/07/16. BP: 183/58. HR: 61. RR: 18. O2 saturation: 96%. Pain level now 0/10. Additional comments: daughter at bedside. --13:36 Lauren Salazar R.N. late entry -13:20 BP flat 180/64, sitting 193/66 HR flat 62, sitting 66. --14:50 Lauren Salazar R.N. 13:25. 10 fr in/out catheterization. During procedure hand hygiene observed and sterile equipment and aseptic technique used. Return of less than 50 mL yellow-colored cloudy urine. It was a complicated placement. She tolerated procedure well. --13:37 Lauren Salazar R.N. 14:08 10/07/16. ( Pt placed on bedpan, 200cc urine out. Pt cleaned, bedding changed). --14:08 Lauren Salazar R.N. 14:12 10/07/16. BP: 193/74. HR: 69. O2 saturation: 96%. --14:12 Schchanck, Natalie 1430 Pt asking to get up to BSC, ot up with 1 staff assist, unsteady on feet. pt voided out 450cc light yellow urine. c/o worsening dizziness when being up. assisted back to bed by 1 staff and daughter. Pt had been incont of urine and ws assisted in changeing clothes and getting depends placed. --14:52 Lauren Salazar R.N. 14:30 10/07/16. BP: 181/72. HR: 72. RR: 20. O2 saturation: 92% on nasal cannula at 2 liters/minute. Temp: deferred. Pain level now: 0/10. Additional comments: Pt had been on room air while up to BSC, o2 sat back down to 89-91 on R/A . --14:54 Lauren Salazar R.N. 14:50 lab here to repeat blood test. --14:55 Lauren Salazar R.N. 15:43 10/07/2016 Meclizine PO Tablets 25 mg given. Allergies verified, confirmed 5 rights and sedative warning given to the patient. --15:52 Lauren Salazar R.N. 15:40 10/07/16. BP: 180/74. HR: 73. RR: 16. O2 saturation: 95% on nasal cannula at 2 liters/minute. Temp: deferred. Pain level now: 0/10. Additional comments: pt asking if she can eat, ERMD approved, pt given sancwich, juice and applesuace. daughter at bedside . --15:54 Lauren Salazar R.N. 16:05. ( up to BSC voided additional 400cc light yellow urine. pt states she feels less dizzy than before meclizine.). --16:20 Lauren Salazar R.N. 16:40 10/07/2016 Site #1 removed upon discharge. Pressure dressing applied. --17:47 Lauren Salazar R.N. 16:40. ( assisted pt getting dressed, placed pt in paper scrub pants. and assisted into w/c for discharge). --17:47 Lauren Salazar R.N. 16:40. Reassessment after medication administered. She reports no complaints and she is calm and resting quietly. Overall patient status is improved- she states feels better (pt states she feels "much better" after meclazine given). --17:48 Lauren Salazar R.N. DISPOSITION / DISCHARGE 16:50. Condition at departure: improved and stable. No learning barriers present. Discharge instructions provided and reviewed with the patient and family. Reviewed medication(s) (meclizine, take zofran). Patient and family verbalized understanding. Written instructions provided in Japanese. The patient was discharged home and accompanied by family. She left the Emergency Department in a wheelchair and via private vehicle. Driving (daughter). --17:50 Lauren Salazar R.N. 16:50 10/07/16. BP: 171/69. HR: 66. RR: 16. O2 saturation: 97% on room air. Temp: deferred. Pain level now: 0/10. --17:50 Lauren Salazar R.N. Locked/Released at 10/07/2016 17:51 by Lauren Salazar R.N.
--- NOTE | 2016-10-07 16:33 | ED ORDER SUMMARY ---
..... Patient: JULIO CESAR FERNANDO OrderSheet [facility] VisitID: [id number] [address] [place], [place] [id number] 86y, F Registration Date/Time: 10/07/2016 ORDER SHEET Weight: 72.5 kg (stated) Allergies: Oxycodone, Sulfa Antibiotics GENERAL ORDERS: Chest 1V Urgent (12:47 10/07/2016 Tammy Hudson) (Ack 12:49 Rick) (13:02 DDean R.N.) Seed Cleaner Operator (Continuous) (light headed) (12:48 10/07/2016 Tammy Hudson) (12:54 DDean R.N.) CBC w Diff Urgent (12:48 10/07/2016 Tammy Hudson) (Ack 12:49 Rick) (12:57 DDean R.N.) CMP Urgent (12:48 10/07/2016 Tammy Hudson) (Ack 12:49 Rick) (12:57 DDean R.N.) UA-Culture if indicated Urgent (12:48 10/07/2016 Tammy Hudson) (Ack 12:49 Rick) (14:10 DDean R.N.) PT with INR Urgent (12:48 10/07/2016 Tammy Hudson) (Ack 12:49 Rick) (12:57 DDean R.N.) Troponin-I Urgent (12:48 10/07/2016 Tammy Hudson) (Ack 12:49 Rick) (12:57 DDean R.N.) Pulse oximeter (12:48 10/07/2016 Tammy Hudson) (12:54 DDean R.N.) EKG - ER Stat (12:48 10/07/2016 Tammy Hudson) (12:57 DDean R.N.) Troponin-I (repeat at 14:50) Urgent (14:24 10/07/2016 Tammy Hudson) (Ack 14:26 Rick) (14:48 KHoerner) MEDICATION ORDERS: Meclizine PO 25 mg (NOW) (15:38 10/07/2016 Tammy Hudson) (15:52 Rika Stanley) IV FLUIDS: IV Saline Lock (12:48 10/07/2016 Tammy Hudson) (12:54 Rika Stanley) ORDER SHEET NOTES: [Electronically signed by Lauren Salazar R.N. (17:51 10/07/2016)] [Electronically signed by Rodrigue Reyes Dr. (01:14 10/11/2016)] [Electronically locked/signed by Lauren Salazar R.N. (17:51 10/07/2016)]
--- NOTE | 2016-10-07 16:33 | ED ORDER SUMMARY ---
..... Patient: JULIO CESAR FERNANDO OrderSheet [facility] VisitID: [id number] [address] [place], [place] [id number] 86y, F Registration Date/Time: 10/07/2016 ORDER SHEET Weight: 72.5 kg (stated) Allergies: Oxycodone, Sulfa Antibiotics GENERAL ORDERS: Chest 1V Urgent (12:47 10/07/2016 Tammy Hudson) (Ack 12:49 Rick) (13:02 DDean R.N.) Divemaster (Continuous) (light headed) (12:48 10/07/2016 Tammy Hudson) (12:54 DDean R.N.) CBC w Diff Urgent (12:48 10/07/2016 Tammy Hudson) (Ack 12:49 Rick) (12:57 DDean R.N.) CMP Urgent (12:48 10/07/2016 Tammy Hudson) (Ack 12:49 Rick) (12:57 DDean R.N.) UA-Culture if indicated Urgent (12:48 10/07/2016 Tammy Hudson) (Ack 12:49 Rick) (14:10 DDean R.N.) PT with INR Urgent (12:48 10/07/2016 Tammy Hudson) (Ack 12:49 Rick) (12:57 DDean R.N.) Troponin-I Urgent (12:48 10/07/2016 Tammy Hudson) (Ack 12:49 Rick) (12:57 DDean R.N.) Pulse oximeter (12:48 10/07/2016 Tammy Hudson) (12:54 DDean R.N.) EKG - ER Stat (12:48 10/07/2016 Tammy Hudson) (12:57 DDean R.N.) Troponin-I (repeat at 14:50) Urgent (14:24 10/07/2016 Tammy Hudson) (Ack 14:26 Rick) (14:48 KHoerner) MEDICATION ORDERS: Meclizine PO 25 mg (NOW) (15:38 10/07/2016 Tammy Hudson) (15:52 Rika Stanley) IV FLUIDS: IV Saline Lock (12:48 10/07/2016 Tammy Hudson) (12:54 Rkia Stanley) ORDER SHEET NOTES: [Electronically signed by Lauren Salazar R.N. (17:51 10/07/2016)] [Electronically signed by Rodrigue Reyes Dr. (01:14 10/11/2016)] [Electronically locked/signed by Lauren Salazar R.N. (17:51 10/07/2016)]
--- NOTE | 2016-10-07 16:33 | ED NURSING NOTES ---
Clinical Report - Nurses [facility] [address] [place] [address] 10/07/2016 12:29 Patient: JULIO CESAR FERNANDO TRIAGE Triage time 1235. Acuity: LEVEL 3. Chief Complaint: DIZZINESS, LIGHT HEADED and VERTIGO. 12:25. TC COMA SCORE: [place] Coma Scale: 15- eyes open spontaneously (4); best verbal response- oriented x 4 (5); best motor response- obeys commands (6). --12:51 Lauren Salazar R.N. 12:40 10/07/16. BP: 191/77. HR: 60. RR: 20. O2 saturation: 91% on room air. Temp: 97.8 F (tympanic). Pain level now: 0/10. Additional comments: 94 2 L . --12:51 Lauren Salazar R.N. Weight: 72.5 kg stated. Height/Length: 70 inches Per Patient. BMI: 22.9. --12:47 Lauren Salazar R.N. Medications Alendronate Sodium Oral. --12:43 Lauren Salazar R.N. Donepezil HCl Oral (Tablet 10 mg) 1 tablet, daily. Propranolol HCl Oral (Tablet 10 mg) 1 tablet, 2x a day. Venlafaxine HCl ER Oral 37.5 mg, daily. --12:43 Steve Eden R.N. Call [facility] [place] for doseages. --12:45 Lauren Salazar R.N. Premarin Vaginal. --14:19 Steve Eden R.N. The following entry was struck by Steve Eden R.N., 14:19 (10/07/16) Reason - other(per pharmacy uses vaginal ). <<STRICKEN ENTRY-- Premarin Oral. --12:41 Lauren Salazar R.N. --END STRIKE>> The following entry was struck and corrected by Steve Eden R.N., 14:18 (10/07/16) Reason for correction - other(correction). [facility]-- Propranolol HCl Oral. --12:43 Lauren Salazar R.N. --END STRIKE>> The following entry was struck and corrected by Steve Eden R.N., 14:18 (10/07/16) Reason for correction - other(correction). <<[facility]-- Donepezil HCl Oral. --12:43 Lauren Salazar R.N. --END STRIKE>> The following entry was struck and corrected by Steve Eden R.N., 14:17 (10/07/16) Reason for correction - other(correction). <<[facility]-- Venlafaxine HCl ER Oral. --12:43 Lauren Salazar R.N. --END STRIKE>>. Allergies Oxycodone. Sulfa Antibiotics. --12:41 Lauern Salazar R.N. History Arrived by EMS. Historian: patient. Unaccompanied. Primary physician ([facility] The patient has had nausea. No headache. SOCIAL HX: Former smoker (quit 50 years ago, smoked 1ppd for 6 years). No alcohol use or drug use. --12:51 Lauren Salazar R.N. PROBLEMS: UTI - Urinary Tract Infection. Hypovolemia. Dizziness. Tremor. Macular Degeneration. --12:50 Lauren Salazar R.N. Interventions ID band on patient. To treatment room. --12:51 Lauren Salazar R.N. PHYSICAL ASSESSMENT 12:25. Ambulatory to room. Patient gowned. GENERAL / NEURO / PSYCH: Oriented X 4. Appears in no acute distress. Alert. Speech within normal limits. ( c/o dizziness). HEENT: No facial asymmetry noted. RESPIRATORY: Respirations not labored. CVS: Capillary refill less than 2 seconds. GI / : Abdomen soft. SKIN: Skin is warm and dry. --12:53 Lauren Salazar R.N. NURSING PROGRESS NOTES 12:25. Oxygen administered. insurance follow up rep placed on patient. Patient gowned. Head of bed elevated. Reassurance given. Patient identifiers checked. Call light placed in reach. Side rails up. Bed placed in lowest position. Patient ready for evaluation- chart flagged. --12:51 Lauren Salazar R.N. 12:47 10/07/2016 Site #1 started via IV in the left antecubital space with an 20g angiocath; one attempt. Blood drawn: rainbow set. Labeled in the presence of the patient and sent to the lab. Saline lock flushed with 10 mL saline (by PANKAJ Hernandez). --12:52 Lauren Salazar R.N. 12:47 IV started, bloods to lab. --12:53 Lauren Salazar R.N. 12:55. EKG time: (1255). EKG was ordered, performed by a tech and shown to the ED physician. Mal Roger, writer technical publications. --12:56 Lauren Salazar R.N. 12:56 10/07/16. BP: 184/74. HR: 64. RR: 18. O2 saturation: 95% on nasal cannula at 2 liters/minute. Temp: deferred. Pain level now: 0/10. --12:57 Lauren Salazar R.N. 13:01 10/07/16. Portable chest x-ray ordered, performed and shown to the ED physician. --13:02 Lauren Salazar R.N. 13:10 10/07/16. BP: 183/58. HR: 61. RR: 18. O2 saturation: 96%. Pain level now 0/10. Additional comments: daughter at bedside. --13:36 Lauren Salazar R.N. late entry -13:20 BP flat 180/64, sitting 193/66 HR flat 62, sitting 66. --14:50 Lauren Salazar R.N. 13:25. 10 fr in/out catheterization. During procedure hand hygiene observed and sterile equipment and aseptic technique used. Return of less than 50 mL yellow-colored cloudy urine. It was a complicated placement. She tolerated procedure well. --13:37 Lauren Salazar R.N. 14:08 10/07/16. ( Pt placed on bedpan, 200cc urine out. Pt cleaned, bedding changed). --14:08 Lauren Salazar R.N. 14:12 10/07/16. BP: 193/74. HR: 69. O2 saturation: 96%. --14:12 Schchanck, Natalie 1430 Pt asking to get up to BSC, ot up with 1 staff assist, unsteady on feet. pt voided out 450cc light yellow urine. c/o worsening dizziness when being up. assisted back to bed by 1 staff and daughter. Pt had been incont of urine and ws assisted in changeing clothes and getting depends placed. --14:52 Lauren Salazar R.N. 14:30 10/07/16. BP: 181/72. HR: 72. RR: 20. O2 saturation: 92% on nasal cannula at 2 liters/minute. Temp: deferred. Pain level now: 0/10. Additional comments: Pt had been on room air while up to BSC, o2 sat back down to 89-91 on R/A . --14:54 Lauren Salazar R.N. 14:50 lab here to repeat blood test. --14:55 Lauren Salazar R.N. 15:43 10/07/2016 Meclizine PO Tablets 25 mg given. Allergies verified, confirmed 5 rights and sedative warning given to the patient. --15:52 Lauren Salazar R.N. 15:40 10/07/16. BP: 180/74. HR: 73. RR: 16. O2 saturation: 95% on nasal cannula at 2 liters/minute. Temp: deferred. Pain level now: 0/10. Additional comments: pt asking if she can eat, ERMD approved, pt given sancwich, juice and applesuace. daughter at bedside . --15:54 Lauren Salazar R.N. 16:05. ( up to BSC voided additional 400cc light yellow urine. pt states she feels less dizzy than before meclizine.). --16:20 Lauren Salazar R.N. 16:40 10/07/2016 Site #1 removed upon discharge. Pressure dressing applied. --17:47 Lauren Salazar R.N. 16:40. ( assisted pt getting dressed, placed pt in paper scrub pants. and assisted into w/c for discharge). --17:47 Lauren Salazar R.N. 16:40. Reassessment after medication administered. She reports no complaints and she is calm and resting quietly. Overall patient status is improved- she states feels better (pt states she feels "much better" after meclazine given). --17:48 Lauren Salazar R.N. DISPOSITION / DISCHARGE 16:50. Condition at departure: improved and stable. No learning barriers present. Discharge instructions provided and reviewed with the patient and family. Reviewed medication(s) (meclizine, take zofran). Patient and family verbalized understanding. Written instructions provided in Greenlandic. The patient was discharged home and accompanied by family. She left the Emergency Department in a wheelchair and via private vehicle. Driving (daughter). --17:50 Lauren Salazar R.N. 16:50 10/07/16. BP: 171/69. HR: 66. RR: 16. O2 saturation: 97% on room air. Temp: deferred. Pain level now: 0/10. --17:50 Lauren Salazar R.N. Locked/Released at 10/07/2016 17:51 by Lauren Salazar R.N.
--- NOTE | 2016-10-11 01:14 | ED MAR SUMMARY ---
..... Medication Administration Record [facility] [address] [place] [address] Patient: JULIO CESAR FERNANDO Visit ID: [id number] 86y, F Weight: 72.5 kg Height/Length: 70 in BMI: 22.9 ALLERGIES: Oxycodone, Sulfa Antibiotics Given 15:43 10/07/2016 Martin, Lauren RIzabellaN. Medication Administered: MECLIZINE [PO], Dose: 25 mg Tablets PO. Medication Ordered: Meclizine PO 25 mg (NOW).
--- NOTE | 2016-10-11 01:14 | ED DISCHARGE INSTRUCTIONS ---
Patient: JULIO CESAR FERNANDO General Instructions [facility] VisitID: [id number] [address] [place] [address] 86y, F Registration Date/Time: 10/07/2016 Acute dizziness Near syncope .12 lead EKG performed. (acute). 10/07/2016 15:40 BP: 180/74. HR: 73. RR: 16. O2 saturation: 95%. Pain level now: 0/10. Hypertensive. Oxygen saturation normal. INSTRUCTIONS Warnings: GENERAL WARNINGS: Return or contact your physician immediately if your condition worsens or changes unexpectedly, if not improving as expected, or if other problems arise. SPECIFICALLY, return if you develop chest pain, fluttering sensation in your chest, lightheadedness, fainting, numbness, weakness or extreme fatigue. difficulty breathing. Your Current Medications: CONTINUE TAKING THE FOLLOWING MEDICATIONS: Alendronate Sodium Oral. Call [facility] in [place] for doseages*. Donepezil HCl Oral : Tablet 10 mg, 1 tablet daily. Premarin Vaginal. Propranolol HCl Oral : Tablet 10 mg, 1 tablet 2x a day. Venlafaxine HCl ER Oral : 37.5 mg daily. Prescription Medications: Meclizine 25 mg: take 1 tablet orally every 8 hours as needed for dizziness or nausea. Dispense thirty (30). No refill. Follow-up: Return to the emergency department as needed. Follow up with your doctor in three days. Reason for referral: recheck today's concerns. Summary of care provided to patient via paper. Screening today revealed the patient's blood pressure to be in the hypertensive range. The patient should follow up with a primary care provider for blood pressure management. Understanding of the discharge instructions verbalized by patient. ADDITIONAL INFORMATION Dizziness [Uncertain Cause] Dizziness is a common symptom sometimes described as "lightheadedness" or feeling like you are going to faint. If it lasts for only a few seconds and is related to changes in position (such as getting up after lying or sitting for a long time), it is usually not a sign of anything serious. Dizziness that lasts for minutes to hours, or comes on for no apparent reason, may be a sign of a more serious problem (such as dehydration, a medicine reaction, disease of the heart or brain). Today's exam did not show an exact cause for your dizzy spell . Sometimes additional tests are required before a cause can be found. Therefore, it is important to follow up with your doctor if your symptoms continue. Home Care: 1) If a dizzy spell occurs and lasts more than a few seconds, lie down until it passes. If you are lying down, then you cannot hurt yourself by falling if you do faint. 2) Do not drive or operate dangerous equipment until the dizzy spells have stopped for at least 48 hours. 3) If dizzy spells occur with sudden standing, this may be a sign of mild dehydration. Drink extra fluids over the next few days. 4) If you recently started a new medicine or if you had the dose of a current medicine increased (especially blood pressure medicine), talk with the prescribing doctor about your symptoms. Dose adjustments may be needed. Follow Up with your doctor for further evaluation within the next seven days, if your symptoms continue. Get Prompt Medical Attention if any of the following occur: -- Worsening of your symptoms -- Fainting, headache or seizure -- Repeated vomiting -- Feeling like you or the room is spinning -- Chest, arm, neck, back or jaw pain -- Palpitations (the sense that your heart is fluttering or beating fast or hard) -- Shortness of breath -- Blood in vomit or stool (black or red color) -- Weakness of an arm or leg or one side of the face -- Difficulty with speech or vision Near-Fainting:Uncertain Cause Fainting (syncope) is a temporary loss of consciousness ("passing out"). It occurs when blood flow to the brain is reduced. Near-fainting ("near-syncope") is like fainting, but you do not fully "pass out." The common minor causes of near fainting include sudden fear, pain, emotional stress, overexertion, or quickly standing up after sitting or lying for a long time. The more serious causes for near fainting are due to either a very slow or very fast heart beat, dehydration, anemia, blood loss, problems related to the heart, or taking too much high blood pressure medicine. The exact cause of your episode is not certain. More tests may be required. Therefore, it is important that you follow up with your doctor as advised. Home Care: 1) Rest today. Resume your normal activities as soon as you are feeling back to normal. 2) If you become light-headed or dizzy, lie down right away or sit with your head between your knees. 3) Because we do not know the exact cause of your near fainting spell, another spell could occur without warning. Therefore, do not drive a car or use dangerous equipment. D o not take a bath alone (use a shower instead). Do not swim alone. You can resume these activities when your doctor says that you are no longer in danger of having a near fainting spell. 4) Stay well hydrated by drinking enough fluid each day. Follow Up with your doctor as instructed. Get Prompt Medical Attention if any of the following occur: -- Another fainting spell occurs, and it is not explained by the common causes listed above -- Chest, arm, neck, jaw, back or abdominal pain -- Shortness of breath -- Weakness, tingling or numbness in one side of the face, one arm or leg -- Slurred speech, confusion, trouble walking or seeing -- Seizure -- Blood in vomit, stools (black or red color) -- (In women) unexpected vaginal bleeding Meclizine Hydrochloride Oral tablet What is this medicine? MECLIZINE (MEK candy zejabari) is an antihistamine. It is used to prevent nausea, vomiting, or dizziness caused by motion sickness. It is also used to prevent and treat vertigo (extreme dizziness or a feeling that you or your surroundings are tilting or spinning around). How should I use this medicine? Take this medicine by mouth with a glass of water. Follow the directions on the prescription label. If you are using this medicine to prevent motion sickness, take the dose at least 1 hour before travel. If it upsets your stomach, take it with food or milk. Take your doses at regular intervals. Do not take your medicine more often than directed. Talk to your roll wrapper regarding the use of this medicine in children. Special care may be needed. What side effects may I notice from receiving this medicine? Side effects that you should report to your doctor or health healthcare consulting manager as soon as possible: fainting spells fast or irregular heartbeat Side effects that usually do not require medical attention (report to your doctor or health healthcare consulting manager if they continue or are bothersome): constipation difficulty passing urine difficulty sleeping headache stomach upset What may interact with this medicine? barbiturate medicines for inducing sleep or treating seizures digoxin medicines for anxiety or sleeping problems, like alprazolam, diazepam or temazepam medicines for hay fever and other allergies medicines for mental depression medicines for movement abnormalities as in Parkinson's disease, or for stomach problems medicines for pain medicines that relax muscles What if I miss a dose? If you miss a dose, take it as soon as you can. If it is almost time for your next dose, take only that dose. Do not take double or extra doses. Where should I keep my medicine? Keep out of the reach of children. Store at room temperature between 15 and 30 degrees C (59 and 86 degrees F). Keep container tightly closed. Throw away any unused medicine after the expiration date. What should I tell my health care provider before I take this medicine? They need to know if you have any of these conditions: asthma glaucoma prostate trouble stomach problems urinary problems an unusual or allergic reaction to meclizine, other medicines, foods, dyes, or preservatives or trying to get breast-feeding What should I watch for while using this medicine? If you are taking this medicine on a regular schedule, visit your doctor or health healthcare consulting manager for regular checks on your progress. You may get dizzy, drowsy or have blurred vision. Do not drive, use machinery, or do anything that needs mental alertness until you know how this medicine affects you. Do not stand or sit up quickly, especially if you are an older patient. This reduces the risk of dizzy or fainting spells. Alcohol can increase possible dizziness. Avoid alcoholic drinks. Your mouth may get dry. Chewing sugarless gum or sucking hard candy, and drinking plenty of water may help. Contact your doctor if the problem does not go away or is severe. This medicine may cause dry eyes and blurred vision. If you wear contact lenses you may feel some discomfort. Lubricating drops may help. See your eye doctor if the problem does not go away or is severe. You have been given the following additional information: Dizziness, Unk Cause Near Syncope, Unknown Meclizine Hydrochloride Oral tablet (Electronically signed by Rodrigue Reyes Dr. 10/11/2016 1:14)
--- NOTE | 2016-10-11 01:14 | ED MAR SUMMARY ---
..... Medication Administration Record [facility] [address] [place] [address] Patient: JULIO CESAR FERNANDO Visit ID: [id number] 86y, F Weight: 72.5 kg Height/Length: 70 in BMI: 22.9 ALLERGIES: Oxycodone, Sulfa Antibiotics Given 15:43 10/07/2016 Martin, Lauren RIzabellaN. Medication Administered: MECLIZINE [PO], Dose: 25 mg Tablets PO. Medication Ordered: Meclizine PO 25 mg (NOW).
--- NOTE | 2016-10-11 01:14 | ED MED RECONCILIATION SUMMARY ---
Patient: JULIO CESAR FERNANDO Medication Reconciliation Report [facility] VisitID: [id number] [address] [place] [address] 86y, F Registration Date/Time: 10/07/2016 Weight: 72.5 kg Height/Length: 70 in. BMI: 22.9 ALLERGIES: Oxycodone, Sulfa Antibiotics The patient's Home Medications are listed below: CONTINUE TAKING THE FOLLOWING MEDICATIONS: Alendronate Sodium Oral [facility] [place] for doseages Donepezil HCl Oral (10 mg) 1 tablet, daily Premarin Vaginal Propranolol HCl Oral (10 mg) 1 tablet, 2x a day Venlafaxine HCl ER Oral 37.5 mg, daily The source(s) of the original Home Medication information: Not obtained. The following Medications were given to the patient in the Emergency Department: Meclizine [PO] PO 25 mg, administered: 10/07/2016 3:43:00 PM The following Medications were prescribed to the patient: Meclizine 25 mg: take 1 tablet orally every 8 hours as needed for dizziness or nausea. Dispense thirty (30). No refill. -- Rodrigue Reyes Dr.
--- NOTE | 2016-10-11 01:14 | ED MED RECONCILIATION SUMMARY ---
Patient: JULIO CESAR FERNANDO Medication Reconciliation Report [facility] VisitID: [id number] [address] [place] [address] 86y, F Registration Date/Time: 10/07/2016 Weight: 72.5 kg Height/Length: 70 in. BMI: 22.9 ALLERGIES: Oxycodone, Sulfa Antibiotics The patient's Home Medications are listed below: CONTINUE TAKING THE FOLLOWING MEDICATIONS: Alendronate Sodium Oral [facility] [place] [facility] Donepezil HCl Oral (10 mg) 1 tablet, daily Premarin Vaginal Propranolol HCl Oral (10 mg) 1 tablet, 2x a day Venlafaxine HCl ER Oral 37.5 mg, daily The source(s) of the original Home Medication information: Not obtained. The following Medications were given to the patient in the Emergency Department: Meclizine [PO] PO 25 mg, administered: 10/07/2016 3:43:00 PM The following Medications were prescribed to the patient: Meclizine 25 mg: take 1 tablet orally every 8 hours as needed for dizziness or nausea. Dispense thirty (30). No refill. -- Rodrigue Reyes Dr.
== END 2016-10-07 16:50 | disposition home or self-care (01) ==
LOC: ED SRH 12:29
DX: R55 Syncope and collapse (principal); R42 Dizziness and giddiness; Z88.5 Allergy status to narcotic agent; Z88.2 Allergy status to sulfonamides; Z79.899 Other long term (current) drug therapy
CPT/HCPCS: 81460; 90004; 90074; 90100; 90616; 94060; 95059